=== PATIENT | male | born 1975 | race Caucasian/White ===

== ENCOUNTER 2019-03-09 13:20 | Emergency (ER) | payer MEDICAID ==
[~2019-03-09] VITALS: Ht 177.8 cm; Wt 66.7 kg
[2019-03-09 13:45] VITALS: BP 135/75
--- NOTE | 2019-03-09 13:47 | NUR ---
PT TO ER LOBBY WITH VS STABLE
--- NOTE | 2019-03-09 14:39 | NUR ---
PT AMB TO [facility]
--- NOTE | 2019-03-09 14:56 | NUR ---
PA THOMPSON EVALUATING PT AT BEDSIDE
--- NOTE | 2019-03-09 14:59 | NUR ---
43/M C/O 08/31 LT EAR AND THROAT PAIN, DRY COUGHING, NASAL CONGESTION X 2 DAYS. SORE THROAT PAIN WORSE IN THE MORNING. LT EAR PAIN PERSISTANT. PMH- DENIES
--- NOTE | 2019-03-09 15:08 | NUR ---
Patient discharged with v/s stable. Written and verbal after care instructions given and explained. Patient alert, oriented and verbalized understanding of instructions. Ambulatory with steady gait. All questions addressed prior to discharge. ID band removed. Patient advised to follow up with PMD. Rx of CEPACOL SENSATIONS HYDRA 3 MG LOZENGE, PROMETHAZINE, MOTRIN 600 MG given. Patient educated on indication of medication including possible reaction and side effects. Opportunity to ask questions provided and answered.
[2019-03-09 15:09] VITALS: BP 143/88
== END 2019-03-09 15:08 | disposition home or self-care (01) ==
LOC: MED 13:20
DX: J06.9 Acute upper respiratory infection, unspecified (principal); H92.02 Otalgia, left ear
CPT/HCPCS: 99283

== ENCOUNTER 2019-05-07 16:45 | Emergency (ER) | payer MEDICAID, OTHER ==
[~2019-05-07] VITALS: Ht 175.3 cm; Wt 68.0 kg
[2019-05-07 16:55] VITALS: BP 143/91
--- NOTE | 2019-05-07 17:13 | NUR ---
C/O DIZZINESS, TROUBLE WALKING, BODY ACHES, N/V STARTING AROUND 11 AM TODAY. PT IS SLOW TO RESPOND TO QUESTIONS, BUT IS ANSWERING THEM ARROPRIATELY. NO UNILATERAL WEAKNESS NOTED, NO FACIAL DROOP, AMBULATORY WITH A STEADY GAIT. PT IS AFEBRILE AT THIS TIME, BUT STATES HE FELT THE CHILLS AT HOME. REPORTS TAKING NORCO 10MG TODAY AT 11 AM FOR CHRONIC BACK PAIN. 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 NO SOB, CHEST PAIN OR RASH NOTED. BED IN LOW POSITION, SIDE RAIL UP X1.
--- NOTE | 2019-05-07 17:19 | NUR ---
DR LUCERO AT BEDSIDE EVALUATING PT
[2019-05-07] MEDS ORDERED: MORPHINE SULFATE 2 MG/ML SYR IVP ONE (17:25)
[2019-05-07] MEDS ORDERED: NACL 0.9% 500 ML IV ONE (17:25)
[2019-05-07 17:57] VITALS: BP 153/96
--- NOTE | 2019-05-07 17:57 | NUR ---
Patient discharged with v/s stable. Written and verbal after care instructions given and explained. Patient verbalized understanding. Ambulatory with steady gait. All questions addressed prior to discharge. Advised to follow up with PMD. PTS GIRLFRIEND WILL BE DRIVING HIM HOME
== END 2019-05-07 17:57 | disposition home or self-care (01) ==
LOC: MED 16:45
DX: L50.8 Other urticaria (principal); R03.0 Elevated blood-pressure reading, without diagnosis of hypertension; R42 Dizziness and giddiness; Z88.8 Allergy status to other drugs, medicaments and biological substances
CPT/HCPCS: 96374; 99283; J2270; J7030